=== PATIENT | male | born 1960 | race Caucasian/White ===

== ENCOUNTER 2018-02-11 17:12 | Emergency (ER) | payer OTHER ==
[~2018-02-11] VITALS: Ht 175.3 cm; Wt 90.3 kg
[~2018-02-11 17:12] MED LIST: AMBIEN 10MG10 MG PO; REMERON30 MG PO; VIBRAMYCIN 100100 MG PO
--- NOTE | 2018-02-11 18:56 | ED GI/GU/ABDOMINAL COMPLAINT ---
History of Present Illness General Chief Complaint: General Adult Stated Complaint: ANAL DISCOMFORT Source: patient Exam Limitations: no limitations Vital Signs & Intake/Output Vital Signs & Intake/Output Vital Signs Date Time Temp Pulse Resp B/P B/P Pulse O2 O2 Flow FiO2 Mean Ox Delivery Rate 02/12 2048 98.2 88 20 128/87 100 Room Air 02/11 1753 99 Room Air 02/11 1716 98.3 94 16 132/74 99 Room Air Allergies Coded Allergies: NO KNOWN ALLERGIES (01/29/12) Reconcile Medications Doxycycline (Vibramycin 100 MG Cap) 100 MG CAP 1 TAB PO BID INFECTION please take next dose this evening. Ibuprofen 800 MG TABLET 1 TAB PO TID PRN PAIN Mirtazapine (Remeron) 30 MG TAB 30 MG PO AT BEDTIME ANXIETY Potassium Chloride (Klor-Con M10) 10 MEQ TAB.ER.PRT 1 TAB PO DAILY HYPO K Zolpidem Tartrate (Ambien 10MG) 10 MG TAB 1 TAB PO AT BEDTIME INSOMNIA Triage Note: REPORTS ANAL AREA PAIN SECONDARY TO HEMORRHOIDS. DENIED ANY BLEEDING, JUST PAIN. Triage Nurses Notes Reviewed? yes Onset: Abrupt Duration: day(s): (1-2), constant, continues in ED, getting worse Timing: single episode today Quality/Severity: fullness, sharpness Severity Numbers: 8 Location: RECTAL Activities at Onset: none Prior Abdominal Problems: similar symptoms Past Sexual History: Unobtainable at this time No Modifying Factors: none Modifying Factors: Worsens With: defecating, movement, palpation. Associated Symptoms: abdominal pain, diarrhea HPI: 57-year-old male past medical history of autism and anxiety presents for evaluation of rectal/anal pain. Patient states that he first noticed this about one to 2 days ago and has been persistent. He states the pain has improved since first starting but is still present. He states that the pain is located in his anal area reveals that the pain is inside. He fell to the pain may be due to hemorrhoids she's been applying Preparation H suppositories with some improvement. She also been using stool softeners and enemas. He denies a history of constipation or straininG she had diarrhea for the past several days. He denies any abdominal pain rectal bleeding melena blood thinners fever. Not taking any medicine for pain other than the topical Preparation H. He has had a colonoscopy when he was 51. (Hardeep Hoover) Past History Travel History Traveled to [place] past 21 day No Medical History Any Pertinent Medical History? see below for history Neurological: AUTISM EENT: NONE Cardiovascular: NONE Respiratory: NONE Gastrointestinal: NONE Hepatic: NONE Renal: NONE Musculoskeletal: NONE Psychiatric: anxiety, DEPRESSION AUTISM AUTISM Endocrine: NONE Blood Disorders: NONE Cancer(s): NONE INTERIOR DESIGN DIRECTOR/Reproductive: NONE History of MRSA: No History of VRE: No History of CDIFF: No Surgical History Surgical History: non-contributory Psychosocial History Who do you live with Patient/Self What is your primary language Montenegrin Tobacco Use: Never used Family History Hx Contributory? No (Hardeep Hoover) Review of Systems Review of Systems Constitutional: Reports: no symptoms. EENTM: Reports: no symptoms. Respiratory: Reports: no symptoms. Cardiovascular: Reports: no symptoms. GI: Reports: see HPI (RECTAL PAIN ). Genitourinary: Reports: no symptoms. Musculoskeletal: Reports: no symptoms. Skin: Reports: no symptoms. Neurological/Psychological: Reports: no symptoms. Hematologic/Endocrine: Reports: no symptoms. Immunologic/Allergic: Reports: no symptoms. All Other Systems: Reviewed and Negative (Hardeep Hoover) Physical Exam Physical Exam General Appearance: well developed/nourished, no apparent distress, alert, awake Head: atraumatic, normal appearance Eyes: Bilateral: normal appearance, PERRL, EOMI, normal inspection. Ears, Nose, Throat, Mouth: hearing grossly normal, moist mucous membrane Neck: normal inspection, supple, full range of motion Respiratory: normal breath sounds, chest non-tender, no respiratory distress, lungs clear Cardiovascular: regular rate/rhythm, normal peripheral pulses Peripheral Pulses: 2+ radial (R), 2+ radial (L) Gastrointestinal: normal bowel sounds, soft, non-tender, no organomegaly Rectal: normal inspection, normal rectal tone, heme negative stool, NO EXTERNAL HEMORRHOIDS. nO INTERNAL HEMORRHOIDS PALPATED NO MASSES. Back: normal inspection, normal range of motion, no vertebral tenderness Extremities: normal range of motion Neurologic/Psych: no motor/sensory deficits, awake, alert, oriented x 3, normal gait Skin: intact, normal color, warm/dry Core Measures ACS in differential dx? No Sepsis Present: No Sepsis Focused Exam Completed? No (Hardeep Hoover) Progress Differential Diagnosis: hernia, hemorrhoids, COLORECTAL CANCER, CONSTIPATION, DIVERTICULITIS, RECTAL ABSCESS, PERIANAL ABSCESS, ANAL FISSURE, FISTULA Plan of Care: Orders Procedure Date/time Status COMPREHENSIVE METABOLIC PANEL 02/11 1829 Complete CBC WITHOUT DIFFERENTIAL 02/11 1829 Complete Laboratory Tests 02/11/181841: Anion Gap 12, Estimated GFR > 60, BUN/Creatinine Ratio 14.2, Glucose 149 H, Calcium 8.6, Total Bilirubin 1.5 H, AST 24, ALT 28, Alkaline Phosphatase 77, Total Protein 6.4, Albumin 3.6, Globulin 2.8, Albumin/Globulin Ratio 1.3, CBC w Diff NO MAN DIFF REQ, RBC 4.15 L, MCV 90.4, MCH 31.0, MCHC 34.3, RDW 12.6, MPV 8.7, Gran % 85.3 H, Lymphocytes % 8.5 L, Monocytes % 6.2, Eosinophils % 0, Basophils % 0, Absolute Granulocytes 11.6 H, Absolute Lymphocytes 1.1 L, Absolute Monocytes 0.8 H, Absolute Eosinophils 0, Absolute Basophils 0 Patient seen and evaluated. He is here with rectal/anal pain for the past 1-2 days. On exam no external or internal hemorrhoids are noted. Patient denies any bleeding. No abdominal pain or weight loss. He reports he had a colonoscopy several years ago that was normal. Because patient is reporting rectal/anal pain without any hemorrhoids seen on exam a CT scan will be obtained. Also check basic labs. With blood cell count of 13.6 and potassium of 3.1. 40MCG of K-DUR ordered. Patient will also be discharged on oral potassium supplement and advised to recheck his potassium in a few days. CT scan showed a soft tissue mass versus possible impacted stool at the rectal anal junction. I was unable to feel this on digital rectal exam. Reviewed results with patient. Advised him of the importance of close follow-up with GI for colonoscopy or barium enema. Advised them to continue preparation H doing much better after Toradol continue ibuprofen. Discussed the possibility of malignancy and the extreme importance of close follow-up. He already has a GI doctor. He'll be given Dr. Valentin's info just in case. Also advised him to recheck her potassium. Discussed return precautions in detail. Patient agrees the plan Diagnostic Imaging: Viewed by Me: CT Scan. Discussed w/RAD: CT Scan. Radiology Impression: PATIENT: PARUL ORTIZ PRESENT AGE: 57 PATIENT ACCOUNT NO: [id number] : 61 LOCATION: [facility] ORDERING PHYSICIAN: Hardeep MONIQUE SERVICE DATE: 02/11/18 EXAM TYPE: CAT - CT ABD & PELVIS W IV CONTRAST EXAMINATION: CT ABD PELVIS W IV CONTRAST CLINICAL INFORMATION: MALIGANCY, ABSCESS, COLITIS, PROCTITIS
Signs Symptoms: RECTAL PAIN DIARRHEA
COMPARISON: 2014 TECHNIQUE: Multidetector volumetric imaging was performed from the superior aspect of the liver through the pubic symphysis 95 mL of Optiray 320 injected Sagittal and coronal reformatted images were obtained on the technologist's workstation. DLP: 469 mGy-cm FINDINGS: LOWER THORAX: Included lung bases are clear. HEPATOBILIARY: There is tiny hepatic hypodensities 5 mm or less small to characterize, no suspicious liver mass. No enhancing focal lesion. GALLBLADDER: Gallbladder is a small contracted. SPLEEN: Spleen is normal in size. PANCREAS: No focal mass or ductal dilatation. STOMACH AND GASTROINTESTINAL TRACT: Stomach is grossly unremarkable. There is no bowel distention or thickening. Appendix is unremarkable. ADRENALS: No adrenal nodules. KIDNEYS/URETERS: No hydronephrosis, stones or solid mass lesions. URINARY BLADDER: Unremarkable PELVIC VISCERA: There is hypodense structure within the distal rectum about 4 x 3.7 cm, this could be impacted stool versus soft tissue mass. It is located the distally and might be reachable with digital exam. Otherwise correlation with colonoscopy or barium enema would be indicated. PERITONEUM: No free air or fluid. LYMPH NODES: No lymphadenopathy. VASCULAR: Unremarkable BONES, ABDOMINAL WALL AND SOFT TISSUES: Sclerotic density in the LEFT iliac bone probably bone island this has not changed. No destructive bone lesion. There are age-related degenerative changes of the spine. IMPRESSION: 1. Soft tissue opacity about 4cm in the distal rectum at the rectoanal junction could be an impacted feces versus a soft tissue mass RECTAL MASS NEOPLASM. This is located distally and might be amenable for palpation with rectal digital exam otherwise correlation with outpatient nonemergent colonoscopy and/or barium enema would be indicated. 2. Other findings include few tiny scattered hepatic hypodensities too small to characterize, normal appendix, no hydronephrosis or renal stone. (Referring physician will be called, alerted of the above findings and recommendations. ) DICTATED BY: Wilber Cabral MD DATE/TIME DICTATED:02/11 TRANSIT DEPARTMENT CLERK:KASHIF DATE/TIME TRANSCRIBED:02/11/181956 CONFIDENTIAL, DO NOT COPY WITHOUT APPROPRIATE AUTHORIZATION. <Electronically signed in Other Vendor System> SIGNED BY: Wilber Cabral MD 02/11/182010 Initial ED EKG: none (Hardeep Hoover) Departure Departure Disposition: HOME OR SELF CARE Condition: Stable Clinical Impression Primary Impression: Anal or rectal pain Referrals: Sabas GRUBBS,Sigifredo Lozano (PCP/Family) Homero GRUBBS,Shukri Sanchez Additional Instructions: Make a follow-up appointment with your primary care doctor to recheck the potassium level in a few days. Told and continue to take potassium supplement once daily. He also need to have a follow-up with a GI doctor. Follow-up with your GI doctor or provided GI Dr. Valentin. It is very important that you get a colonoscopy or barium enema for further evaluation of the CT scan findings. Monitor symptoms closely return with any concerns. You can continue to use Preparation H as directed use ibuprofen as needed for pain. Departure Forms: Customer Survey General Discharge Information Prescriptions: Current Visit Scripts Potassium Chloride (Klor-Con M10) 1 TAB PO DAILY #10 TAB Ibuprofen 1 TAB PO TID PRN PAIN #30 TAB (Hardeep Hoover) PA/PRIVATE BRANCH EXCHANGE SERVICE ADVISOR Co-Sign Statement Statement: ED Attending supervision documentation- [] I saw and evaluated the patient. I have also reviewed all the pertinent lab results and diagnostic results. I agree with the findings and the plan of care as documented in the PA's/PRIVATE BRANCH EXCHANGE SERVICE ADVISOR's documentation. [X] I have reviewed the ED Record and agree with the PA's/PRIVATE BRANCH EXCHANGE SERVICE ADVISOR's documentation. [] Additions or exceptions (if any) to the PAs/PRIVATE BRANCH EXCHANGE SERVICE ADVISOR's note and plan are summarized below: [] (Fariba GRUBBS,Renato Chao)
[2018-02-11 19:08] LABS: ABSOLUTE BASOPHIL COUNT 0 /CUMM (0.0-0.2); ABSOLUTE EOSINOPHIL COUNT 0 /CUMM (0.0-0.7); ABSOLUTE GRANULOCYTE CT 11.6 /CUMM (1.4-6.5); ABSOLUTE LYMPH COUNT 1.1 /CUMM (1.2-3.4); ABSOLUTE MONOCYTE COUNT 0.8 /CUMM (0.10-0.60); BASOPHIL % 0 % (0.0-2.0); EOSINOPHIL % 0 % (0-5); HEMATOCRIT 37.5 % (42-52); MEAN CORPUSCULAR HGB CONC 34.3 G/DL (33.0-37.0); MEAN CORPUSCULAR VOLUME 90.4 FL (80.0-94.0); MEAN PLATELET VOLUME 8.7 FL (7.4-10.4); PLATELET COUNT 186 /CUMM (130-400); RBC DISTRIBUTION WIDTH 12.6 % (11.5-14.5); RED BLOOD CELL CT 4.15 /CUMM (4.70-6.10); WHITE BLOOD CELL COUNT 13.6 /CUMM (4.8-10.8)
[2018-02-11 19:10] LABS: GRANULOCYTE % 85.3 % (42.2-75.2)
--- NOTE | 2018-02-11 20:11 | CT SCAN REPORT ---
EXAMINATION: CT ABD PELVIS W IV CONTRAST CLINICAL INFORMATION: MALIGANCY, ABSCESS, COLITIS, PROCTITIS
Signs Symptoms: RECTAL PAIN DIARRHEA
COMPARISON: 2014 TECHNIQUE: Multidetector volumetric imaging was performed from the superior aspect of the liver through the pubic symphysis 95 mL of Optiray 320 injected Sagittal and coronal reformatted images were obtained on the technologist's workstation. DLP: 469 mGy-cm FINDINGS: LOWER THORAX: Included lung bases are clear. HEPATOBILIARY: There is tiny hepatic hypodensities 5 mm or less small to characterize, no suspicious liver mass. No enhancing focal lesion. GALLBLADDER: Gallbladder is a small contracted. SPLEEN: Spleen is normal in size. PANCREAS: No focal mass or ductal dilatation. STOMACH AND GASTROINTESTINAL TRACT: Stomach is grossly unremarkable. There is no bowel distention or thickening. Appendix is unremarkable. ADRENALS: No adrenal nodules. KIDNEYS/URETERS: No hydronephrosis, stones or solid mass lesions. URINARY BLADDER: Unremarkable PELVIC VISCERA: There is hypodense structure within the distal rectum about 4 x 3.7 cm, this could be impacted stool versus soft tissue mass. It is located the distally and might be reachable with digital exam. Otherwise correlation with colonoscopy or barium enema would be indicated. PERITONEUM: No free air or fluid. LYMPH NODES: No lymphadenopathy. VASCULAR: Unremarkable BONES, ABDOMINAL WALL AND SOFT TISSUES: Sclerotic density in the LEFT iliac bone probably bone island this has not changed. No destructive bone lesion. There are age-related degenerative changes of the spine. IMPRESSION: 1. Soft tissue opacity about 4cm in the distal rectum at the rectoanal junction could be an impacted feces versus a soft tissue mass RECTAL MASS NEOPLASM. This is located distally and might be amenable for palpation with rectal digital exam otherwise correlation with outpatient nonemergent colonoscopy and/or barium enema would be indicated. 2. Other findings include few tiny scattered hepatic hypodensities too small to characterize, normal appendix, no hydronephrosis or renal stone. (Referring physician will be called, alerted of the above findings and recommendations. )
[2018-02-11] MEDS ORDERED: KLOR-CON M1010 ME1 PO (20:33)
[2018-02-11] MEDS ORDERED: IBUPROFEN800 M1 PO (20:34)
[2018-02-11 20:48] VITALS: BP 128/87
== END 2018-02-11 20:49 ==
LOC: ERH 17:12
PROVIDERS: Physician Assistant Medical
DX: K62.89 Other specified diseases of anus and rectum (principal)
CPT/HCPCS: 74177; 96374; J1885